=== PATIENT | male | born 1955 | race Caucasian/White ===

== ENCOUNTER 2019-03-24 22:26 | Emergency (ER) | payer SELFPAY ==
[2019-03-24] MEDS ORDERED: Acetaminophen/oxyCODONE 325-5 MG Tab PO ONE (23:06)
[2019-03-24] MEDS ORDERED: Ondansetron 4 MG Tab.DIS PO ONE (23:06)
--- NOTE | 2019-03-24 23:06 | EDM.PDOC ---
ED HPI GENERAL MEDICAL PROBLEM - General Chief Complaint: Neck Problem Stated Complaint: FELL ON ICE Time Seen by Provider: 03/24/19 23:01 Source of Information: Reports: Patient History Limitations: Reports: No Limitations - History of Present Illness INITIAL COMMENTS - FREE TEXT/NARRATIVE: 63-year-old male presents to the ED for evaluation of numbness and tingling in both of his upper extremities involving both the ulnar and the radial nerve and the median nerve distributions. He states that he had a few drinks earlier tonight and when he came out of the bar he slipped on the ice. This caused his feet to go right up in the air and he landed hard on the back of his head and his cervical spine. No loss of consciousness occurred but he felt immediate numbness and tingling in both upper extremities. So did lose control of his bladder. This has persisted. He has no trouble walking. He has no problems with his bowel or bladder control now. He has had previous lumbar spine surgery with microdiscectomy at L4-L5 with good results. States he does have a moderate headache at this time no nausea. Onset: Today Onset Date: 03/24/19 Onset Time: 19:40 Duration: Hour(s):, Getting Worse Location: Reports: Head (Occipital scalp pain), Neck, Upper Extremity, Left ( Paresthesias all the way down from his neck to his), Upper Extremity, Right ( fingers. haziness from neck all the way down to his hands bilaterally. ). Denies: Lower Extremity, Left, Lower Extremity, Right Quality: Reports: Ache, Other (Numbness and tingling in both upper extremities down to all fingers) Severity: Moderate Improves with: Reports: None Worsens with: Reports: None Context: Reports: Trauma (Slipped and fell on ice landing hard on the back of his head and his cervical spine.). 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 (see below) (None.) Cervical Pain Score (Numeric/FACES): 5 - Related Data Allergies Allergy/AdvReac Type Severity Reaction Status Date / Time No Known Allergies Allergy Verified 03/25/19 00:22 Home Meds: Home Meds Gabapentin [Neurontin] 100 mg PO TID #21 cap 03/25/19 [Rx] oxyCODONE HCl/Acetaminophen [Percocet 5-325 mg Tablet] 1 - 2 each PO Q4H PRN # 20 tablet 03/25/19 [Rx] Past Medical History - Past Surgical History GI Surgical History: Reports: Colonoscopy Musculoskeletal Surgical History: Reports: Other (See Below) Other Musculoskeletal Surgeries/Procedures:: lower back surgery L5,S1 Social & Family History - Tobacco Use Smoking Status *Q: Current Every Day Smoker Years of Tobacco use: 45 Packs/Tins Daily: 1 - Caffeine Use Caffeine Use: Reports: Coffee - Recreational Drug Use Recreational Drug Type: Reports: Marijuana/Hashish Other Recreational Drug Type: for back pain Recreational Drug Use Frequency: Rarely - Living Situation & Occupation Living situation: Reports: Single Occupation: Employed ED ROS GENERAL - Review of Systems Review Of Systems: See Below Constitutional: Reports: No Symptoms HEENT: Reports: No Symptoms, Other (Plan occipital aspect of his head.) Respiratory: Reports: No Symptoms Cardiovascular: Reports: No Symptoms Endocrine: Reports: No Symptoms GI/Abdominal: Reports: No Symptoms : Reports: No Symptoms Musculoskeletal: Reports: Neck Pain, Back Pain Skin: Reports: No Symptoms (Once falling today.) Neurological: Reports: No Symptoms Psychiatric: Reports: No Symptoms Hematologic/Lymphatic: Reports: No Symptoms Immunologic: Reports: No Symptoms ED EXAM, UPPER BACK/NECK PAIN - Physical Exam Exam: See Below Exam Limited By: No Limitations General Appearance: Alert, WD/WN, No Apparent Distress, Other (Dentures 36.6. Heart rate is 82 and sinus respiratory 16 BP is 135/79) Eye Exam: Bilateral Eye: Normal Inspection, PERRL Throat/Mouth Exam: Normal Inspection, Normal Lips, Normal Oropharynx, Other ( Denies any dental or tongue injury.) Head Exam: Scalp Tenderness (Occipital scalp bilaterally.). No: Scalp Swelling , Scalp Abrasions, Scalp Ecchymosis, Scalp Hematoma, Facial Ecchymosis, Facial Lacerations, Facial Swelling Neck Exam: Normal Alignment, Normal Inspection, Limited Range of Motion (He has full flexion loss of 5 extension also 5 lateral rotation bilaterally and also 5 loss of lateral flexion bilaterally.) Nexus Criteria: No: Posterior, Midline Cervical Tenderness ( Seem to cause any significant pain in his cervical spine), Evidence of Intoxication, Altered Level of Consciousness, Focal Neurological Deficit, Painful Distraction Injuries Cardiovascular/Respiratory: Regular Rate, Rhythm, No M/R/G, Normal Peripheral Pulses Extremities: Normal Inspection, Normal Range of Motion, Non-Tender, No Pedal Edema Neurologic: Alert, Normal Mood/Affect, Oriented x 3, Motor Weakness (He seems to exhibit motor weakness on both sides slightly increased on the right side by helpdesk technician strength only being about 25% of normal. His bicipital strength appears to be normal. He has normal bicipital and triceps and brachioradialis reflexes are 2+ symmetrically bilaterally.), Other DTR: 2+: Bicep (R), Bicep (L), Tricep (R), Tricep (L) Psychiatric: Normal Affect, Normal Mood Skin Exam: Normal Color, Warm/Dry Lymphatic: No Adenopathy Course - Vital Signs Last Recorded V/S: Last Vital Signs Temp 36.6 C 03/24/19 22:41 Pulse 82 03/24/19 22:41 Resp 16 03/24/19 22:41 BP 135/79 03/24/19 22:41 Pulse Ox 98 03/24/19 22:41 - Orders/Labs/Meds Orders: Active Orders 24 hr Category Date Time Status Cervical Spine wo Cont [CT] Stat Exams 03/24/19 23:01 Taken Head wo Cont [CT] Stat Exams 03/24/19 23:02 Taken Meds: Medications Discontinued Medications Generic Name Dose Route Start Last Admin Trade Name Zofia PRN Reason Stop Dose Admin Gabapentin 100 mg 03/25/19 00:47 03/25/19 00:59 Neurontin PO 03/25/19 00:48 100 mg ONETIME ONE Administration Ondansetron HCl 4 mg 03/24/19 23:06 03/24/19 23:10 Zofran Odt PO 03/24/19 23:07 4 mg ONETIME ONE Administration Oxycodone/Acetaminophen 2 tab 03/24/19 23:06 03/24/19 23:10 Percocet 325-5 Mg PO 03/24/19 23:07 2 tab ONETIME ONE Administration - Radiology Interpretation Free Text/Narrative:: 83-year-old male presents to the ED for evaluation of persistent numbness and tingling in both upper extremities since he slipped and fell at about 0740 hrs. this evening. He has had a few drinks prior to this but when he went outside he slipped on ice in both feet went up in the air and landed hard on the back of his head and his cervical spine. Complains of persistent pain occipital scalp and in his neck particularly raising his arms. Of note he reports loss ladder control when he first fell. He has fairly good range of motion of his cervical spine without clinical evidence of fracture. Plan he'll be given Zofran 4 g sublingually and Percocet tabs 5/325 milligrams 2 orally. He will be for CT of the head and cervical spine. Clinically he has SCIWORA--spinal cord injury without radiological evidence of fracture. - Re-Assessments/Exams Free Text/Narrative Re-Assessment/Exam: 03/25/19 00:30: Was tied up in the ICU performing intubation and therefore took a while longer to stress the findings with the patient. CT of the brain did not reveal any intracranial hemorrhage mass effect or skull fracture. Differentiation is well-maintained with no evidence of ischemia or infarct. CT of the cervical spine reveals advanced degenerative changes. I'm and is normal. The odontoid is intact. Slight 1.5 mm degenerative retrolisthesis of C3-on C4 is evident. No blastic or lytic lesions identified. No compressive soft tissue disc protrusion or extrusion is evident by CT. Posterior spondylitic protrusions and uncovertebral spurring are present at C3-C4 and at C5-C6 through C7-T1. Moderate degenerative sclerosis and spurring at the atlantodens interval is evident. No jumped or perched facets. Right-sided facet ankylosis at C2-C3. Moderate to severe degenerative disc space narrowing is appreciated at C3-C4, C5-C6, C6-C7, and at C7-T1,. There is endplate sclerosis and mild/ moderate marginal spurring throughout. Mild central canal stenosis at C3-C4 level and at the C6-C7 level. Mild right foraminal stenosis also present at C3- C4 level. Moderate to severe right foraminal stenosis is present at C5-C6 and C6 -C7 level. Moderate right foraminal stenosis is present at C7-T1 as well. Moderate to severe left foraminal stenosis at C3-C4, C5-C6 and C6-C7 levels. Left foraminal stenosis present at C7-T1 level. Paraspinous soft tissues are unremarkable without any significant soft tissue swelling or soft tissue hematoma. The patient's chief complaint is the paresthesias in both of his hands. States the Percocets made him high and relieve some of his pain but has done nothing for the paresthesias. Clinically the patient is suffered spinal cord contusion without radiological evidence of fracture. He has no problems walking. I will try Neurontin 100 mg 3 times a day for the next 7 days to try and relieve some of his pain in his upper extremities. Advised if the numbness in [place] does not gradually dissipate in his upper extremities over the next 7- 10 days he is going to need MRI and neurosurgical consultation. For Percocet tabs 5/3/25 milligrams strength 20 tablets provided. One or 2 every 4-6 hours as needed. Neurontin 100 mg 3 times a day for 1 week Departure - Departure Time of Disposition: 00:57 Disposition: Home, Self-Care 01 Condition: Fair Clinical Impression: Minor closed head injury, Concussion and edema of cervical spinal cord, initial encounter Fall Qualifiers: Encounter type: initial encounter Qualified Code(s): W19.XXXA - Unspecified fall, initial encounter - Discharge Information *PRESCRIPTION DRUG MONITORING PROGRAM REVIEWED*: Not Applicable *COPY OF PRESCRIPTION DRUG MONITORING REPORT IN PATIENT KWAME: Not Applicable Prescriptions: Gabapentin [Neurontin] 100 mg PO TID #21 cap oxyCODONE HCl/Acetaminophen [Percocet 5-325 mg Tablet] 1 - 2 each PO Q4H PRN # 20 tablet PRN Reason: pain relief. Instructions: Head Injury, Adult Referrals: PCP,None [Primary Care Provider] - Forms: ED Department Discharge Additional Instructions: Evaluation the emergency room today in regards to slip and fall on ice earlier in the evening with blunt trauma to the back of your head and your cervical spine. Signs and symptoms of numbness and tingling in both upper extremities immediately after the fall and this persisted. Also initial loss of bladder control to him strongly suggest that you have suffered a bruise to spinal cord in the neck. The head is negative for any signs of intracranial bleeding or mass effect or skull fracture. The cervical spine CT reveals marked multilevel degenerative changes almost absence of the disc between C5-C6 and C6-C7 levels. No obvious disc protrusion is evident. There is evidence of nerve root entrapment or slight compression at C5-C6 and C6-C7 levels. No broken bones were identified. Suggest treatment with Percocet tabs 5/325 mg one or 2 every 4- 6 hours needed for pain relief for the next 3 days. Use Motrin 600 mg every 6 hours. May use Neurontin 100 mg every 8 hours in the hopes of relieving some of the numbness and tingling in the upper extremities. If the numbness and tingling in the upper extremities does not markedly improve on the next 7 days he will require neurological evaluation and MRI of your neck. Only going to a larger institution where there is neurosurgical capability either in [facility] or back in [place] where you had your lower back surgery as you discussed with me. He would certainly need immediate attention if you lose any further follow bladder control. Sepsis Event Note - Evaluation Sepsis Screening Result: No Definite Risk - Focused Exam Vital Signs: Vital Signs Temp Pulse Resp BP Pulse Ox 03/24/19 22:41 36.6 C 82 16 135/79 98 Date Exam was Performed: 03/25/19 Time Exam was Performed: 04:18 - My Orders Last 24 Hours: My Active Orders 03/24/19 23:01 Cervical Spine wo Cont [CT] Stat 03/24/19 23:02 Head wo Cont [CT] Stat - Assessment/Plan Last 24 Hours: My Active Orders 03/24/19 23:01 Cervical Spine wo Cont [CT] Stat 03/24/19 23:02 Head wo Cont [CT] Stat
[2019-03-25] MEDS ORDERED: Gabapentin 100 MG Cap PO ONE (00:47)
--- NOTE | 2019-03-25 09:56 | CT ---
CT cervical spine Technique: Multiple axial sections were obtained from above C1 inferiorly to the bottom of T2. Reconstructed sagittal and coronal images were reviewed. Comparison: No prior cervical spine imaging. Findings: Severe disc space narrowing is noted at C3-C4, C5-C6, C6-C7 and C7-T1. Diffuse anterior osteophytes are seen. Diffuse posterior osteophytes are noted. Degenerative change is also noted between the dens and anterior arch of C1. Scattered degenerative apophyseal change is seen which is most prominent on the right side at C2-C3. Severe left-sided neural foraminal stenosis is noted at C3-C4. Moderate right-sided neural foraminal stenosis is noted at C3-C4. Severe bilateral neural foraminal stenosis is noted at C5-C6. Severe bilateral neural foraminal stenosis is noted at C6-C7. Moderate narrowing is noted bilaterally at C7-T1. Posterior osteophytes cause mild central canal stenosis at C5-C6. Posterior osteophytes causes mild central canal stenosis or C3-C4. No fracture is appreciated. No abnormal subluxation is seen. Impression: 1. Multiple levels of degenerative change as noted above including central canal stenosis and neural foraminal stenosis. 2. No acute abnormality is appreciated. Diagnostic code #2 I agree with preliminary report issued by [facility] ([facility] preliminary report dictated on 03/25/19, 12:53 AM Central Time)
--- NOTE | 2019-03-25 09:56 | CT ---
Head CT Technique: Multiple axial sections through the brain were obtained. Intravenous contrast was not utilized. Comparison: No prior intracranial imaging is available. Findings: Ventricles along with basal cisterns and sulci over the convexities are within normal limits for the patient's age. No abnormal parenchymal densities are seen. No evidence of intracranial hemorrhage. No midline shift or mass effect is seen. Mastoid sinuses appear clear. Visualized paranasal sinuses show nothing acute. No acute calvarial abnormality is appreciated. Impression: 1. Nothing acute is appreciated on noncontrast head CT exam. Diagnostic code #1 Agree with preliminary report issued by [facility] ([facility] preliminary report dictated on 03/25/19, 12:56 AM Central Time) Study was dictated in [place] Standard Time
== END 2019-03-25 01:02 | disposition home or self-care (01) ==
LOC: JD.ED 22:26
DX: S09.90XA Unspecified injury of head, initial encounter (principal); S14.0XXA Concussion and edema of cervical spinal cord, initial encounter; F17.210 Nicotine dependence, cigarettes, uncomplicated; W00.0XXA Fall on same level due to ice and snow, initial encounter; Y92.89 Other specified places as the place of occurrence of the external cause
CPT/HCPCS: 70450; 72125; 99284; A9270; 99283